=== PATIENT | female | born 1940 | race Two or more races ===

== ENCOUNTER 2023-03-17 19:53 | Inpatient (IN) | payer OTHER ==
[~2023-03-17] VITALS: Ht 152.4 cm; Wt 70.1 kg
[2023-03-17 20:29] LABS: Basophils # (auto) 0.1 10 ^3/uL (0-0.2); Basophils % (auto) 0.8 % (0.0-2.0); Eosinophils # (auto) 1.3 10 ^3/uL (0-0.8); Eosinophils % (auto) 14.7 % (0.0-7.0); Hemoglobin 13.1 g/dL (12.2-16.2); Lymphocytes % (auto) 21.9 % (10.0-50.0); Mean Corpuscular Hemoglobin 27.5 pg (28.0-32.0); Mean Corpuscular Hgb Conc. 32.7 g/dL (32.0-36.0); Mean Corpuscular Volume 84.2 fL (80.0-100.0); Monocytes # (auto) 0.8 10 ^3/uL (0-1.3); Monocytes % (auto) 8.3 % (0.0-12.0); Neutrophils % (auto) 54.3 % (37.0-80.0); Red Blood Cells 4.75 10^6/uL (4.0-5.20); Red Cell Distribution Width 14.4 % (11.8-14.3); White Blood Cell 9.1 10^3/uL (4.4-10.8)
[2023-03-17 20:36] LABS: Urine Bacteria FEW /hpf (None Seen); Urine Blood Negative /uL (Negative); Urine Clarity Clear (Clear); Urine Color Colorless (Yellow); Urine Protein, UAD Negative (Negative); Urine Specific Gravity 1.006 (1.001-1.035); Urine Urobilinogen Normal (Negative); Urine WBC 6 /hpf (0 - 5)
[2023-03-17 20:45] LABS: Alanine Aminotransferase 13 U/L (7-40); Alkaline Phosphatase 103 U/L (46-116); Calcium 9.3 mg/dL (8.7-10.4)
[2023-03-17 20:46] LABS: Albumin 3.9 g/dL (3.2-4.8); Anion Gap 3 (5-15); Aspartate Aminotransferase 14 U/L (13-40); BUN/Creatinine Ratio 19.2 (10.0-20.0); Bilirubin, Total 0.3 mg/dL (0.2-1.0); Blood Urea Nitrogen 15 mg/dL (9-23); Carbon Dioxide 32 mmol/L (20-30); Chloride 103 mmol/L (98-107); Glucose 111 mg/dL (74-106); Potassium 3.8 mmol/L (3.5-5.1); Sodium 138 mmol/L (136-145); Total Protein 6.8 g/dL (5.7-8.2)
[2023-03-17 20:48] LABS: INR 1.03 (0.9-1.15); Partial Thromboplastin Time 28.5 SEC (24.5-34.5); Prothrombin Time 10.8 sec (9.3-11.8)
[2023-03-18] MEDS ORDERED: IOHEXOL 350 MG/ML 100ML IJ ONE (03:12)
[2023-03-18] MEDS ORDERED: ACETAMINOPHEN 325 MG TAB PO ONE (03:15)
[2023-03-18] MEDS ORDERED: ASPirin 81 mg TAB PO ONE (03:15)
[2023-03-18] MEDS ORDERED: ONDANSETRON HCL 4 MG/2 ML VIAL IV ONE (03:15)
[2023-03-18] MEDS ORDERED: MORPHINE SULFATE 4 MG/ML SYR/VIAL IV PRN (03:15)
[2023-03-18] MEDS ORDERED: KETOROLAC TROMETH 30 MG/ML 1ML VIAL IV ONE (03:15)
[2023-03-18] MEDS ORDERED: hydrALAZINE HCL 20 MG/ML VL IV ONE (03:45)
[2023-03-18 04:05] VITALS: RESP 18; TEMP 98.5; O2SAT 96
[2023-03-18 05:59] VITALS: BP 136/61; PULSE 66
[2023-03-18] MEDS ORDERED: hydrALAZINE HCL 20 MG/ML VL IV PRN (09:30)
[2023-03-18] MEDS ORDERED: ONDANSETRON HCL 4 MG/2 ML VIAL IV PRN (09:30)
[2023-03-18] MEDS ORDERED: HYDROcodone-ACET 5/325MG TAB PO PRN (09:30)
[2023-03-18] MEDS ORDERED: ACETAMINOPHEN 325 MG TAB PO PRN (09:30)
[2023-03-18] MEDS ORDERED: DOCUSATE SOD 100 MG CAP PO PRN (09:30)
[2023-03-18] MEDS ORDERED: ASPirin 81 mg TAB PO SCH (10:00)
[2023-03-18] MEDS ORDERED: FAMOTIDINE (10MG/ML) 2ML VL IV SCH (10:00)
[2023-03-18] MEDS ORDERED: MORPHINE SULFATE INJ 2 MG/ml SYRG IV PRN (10:45)
[2023-03-18] MEDS ORDERED: NITROGLYCERIN 0.4 MG SL TAB SL PRN (10:45)
[2023-03-18] MEDS ORDERED: SODIUM CHLOR 0.9% PF (SALINE LOCK) 10ML VIAL/SYR IV SCH (14:00)
[2023-03-19] MEDS ORDERED: ASPirin 81 mg TAB PO SCH (10:00)
== END 2023-03-18 14:10 | disposition left against medical advice (07) | DRG 199 ==
LOC: ER 19:53 → TELE 03-18 10:32
PROVIDERS: ADMIT Nurse Practitioner Family; ATTEND Nurse Practitioner Family
DX: I16.0 Hypertensive urgency (principal); J45.909 Unspecified asthma, uncomplicated; I10 Essential (primary) hypertension; R79.89 Other specified abnormal findings of blood chemistry; Z53.29 Procedure and treatment not carried out because of patient's decision for other reasons
CPT/HCPCS: 36415; 71275; 80053; 81001; 84484; 85025; 85379; 85610; 85730; 93005; 99291; G0378; J1885; J2405